=== PATIENT | female | born 1965 | race Hispanic/Latino ===

== ENCOUNTER 2018-06-25 15:23 | Outpatient (CLI) | payer BC | END 2018-06-25 15:24 | disposition home or self-care (01) | LOC: BICMAMMO 15:23 | PROVIDERS: ATTEND Nurse Practitioner Women's Health | DX: Z12.31 Encounter for screening mammogram for malignant neoplasm of breast (principal) | CPT/HCPCS: 77063; 77067 ==

== ENCOUNTER 2018-08-08 14:22 | Emergency (ER) | payer BC ==
[2018-08-08] MEDS ORDERED: Ketorolac Tromethamine 30 MG/ML VIAL ONE (14:41)
--- NOTE | 2018-08-08 15:30 | RAD ---
RIGHT KNEE 4 VIEWS: Date: 08/08/18 HISTORY: Fall, right knee pain. FINDINGS/IMPRESSION: No acute fracture or dislocation is seen. No joint effusion is identified. POS: [facility]
== END 2018-08-08 15:20 | disposition home or self-care (01) ==
LOC: ERS 14:22
DX: S83.91XA Sprain of unspecified site of right knee, initial encounter (principal); W01.0XXA Fall on same level from slipping, tripping and stumbling without subsequent striking against object, initial encounter
CPT/HCPCS: 96374; J1885

== ENCOUNTER 2018-08-26 14:49 | Outpatient (CLI) | payer BC ==
--- NOTE | 2018-08-27 07:57 | RAD ---
TWO VIEWS THORACIC SPINE: HISTORY: Back pain since Thursday. FINDINGS: AP and lateral views thoracic spine obtained. There is ectasia of the aorta. The thoracic spine is unremarkable. No evidence of thoracic spine fr actures, subluxations, or bony lesions seen. No evidence of prevertebral obvious large soft tissue m asses or lesions seen. IMPRESSION: Normal 2 views thoracic spine. POS: [facility]
--- NOTE | 2018-08-27 07:57 | RAD ---
2 VIEWS LUMBAR SPINE: Date: 08/26/18 HISTORY: Back pain. FINDINGS: AP and lateral views of lumbar spine obtained. Images demonstrate five non-rib bearing lumbar vertebr a. Hypoplastic T12 ribs are present. Minimal anterior osteophytes seen throughout the lumbar spine. There is some mild disc space height loss at the L4-5 intervertebral disc space. No evidence of compression fractures or bony lesions seen. IMPRESSION: Mild changes of spondylosis in the lumbar spine. No acute lumbar spine pathology is seen. POS: [facility]
--- NOTE | 2018-08-27 08:38 | RAD ---
3 VIEWS CERVICAL SPINE: Date: 08/26/18 HISTORY: Neck pain and back pain since Thursday. FINDINGS: AP, lateral, and open-mouth odontoid views of cervical spine obtained. Images demonstrate cervical sp inal alignment to be within normal limits. No evidence of cervical spine fractures, subluxations, or bony lesions seen. The odontoid is unremarkable. No evidence of prevertebral soft tissue swelling see n. IMPRESSION: Normal 3 views cervical spine. POS: [facility]
== END 2018-08-26 14:50 | disposition home or self-care (01) ==
LOC: BICRAD 14:49
DX: M54.2 Cervicalgia (principal); M54.5 Low back pain; M54.6 Pain in thoracic spine; M47.816 Spondylosis without myelopathy or radiculopathy, lumbar region
CPT/HCPCS: 72040; 72070; 72100

== ENCOUNTER 2020-08-31 11:39 | Outpatient (CLI) | payer BC ==
--- NOTE | 2020-08-31 14:37 | MMO ---
Bilateral MAMMO Bilat Screen [facility]. CLINICAL HISTORY: Patient is 55 years old and is seen for screening. The patient has no family history of breast cancer. The patient has no personal history of cancer. VIEWS: The views performed were: bilateral craniocaudal with tomosynthesis and bilateral mediolateral oblique with tomosynthesis. FILMS COMPARED: The present examination has been compared to prior imaging studies performed at [facility] on 01/03/2015, 01/07/2016, 06/08/2017 and 06/25/2018. This study has been interpreted with the assistance of computer-aided detection. MAMMOGRAM FINDINGS: The breasts are heterogeneously dense, which could obscure a lesion on mammography. Benign calcifications are noted bilaterally. There are no suspicious masses, suspicious calcifications, or new areas of architectural distortion. IMPRESSION: THERE IS NO MAMMOGRAPHIC EVIDENCE OF MALIGNANCY. A ROUTINE FOLLOW-UP MAMMOGRAM IN 1 YEAR IS RECOMMENDED. THE RESULTS OF THIS EXAM WERE SENT TO THE PATIENT. ACR BI-RADS Category 2 - Benign finding MAMMOGRAPHY NOTE: 1. A negative mammogram report should not delay a biopsy if a dominant of clinically suspicious mass is present. 2. Approximately 10% to 15% of breast cancers are not detected by mammography. 3. Adenosis and dense breasts may obscure an underlying neoplasm. Reported by: NOAM NEWTON MD Electonically Signed: [id number]
== END 2020-08-31 11:40 | disposition home or self-care (01) ==
LOC: BICMAMMO 11:39
PROVIDERS: ATTEND Family Medicine
DX: Z12.31 Encounter for screening mammogram for malignant neoplasm of breast (principal)
CPT/HCPCS: 77063; 77067

== ENCOUNTER 2022-04-18 15:16 | Outpatient (CLI) | payer BC | END 2022-04-18 15:17 | disposition home or self-care (01) | LOC: BICMAMMO 15:16 | PROVIDERS: ATTEND Family Medicine | DX: Z12.31 Encounter for screening mammogram for malignant neoplasm of breast (principal); R92.1 Mammographic calcification found on diagnostic imaging of breast | CPT/HCPCS: 77063; 77067 ==

== ENCOUNTER 2022-05-11 21:47 | Emergency (ER) | payer BC ==
[2022-05-11 22:48] LABS: #Basophils 0.1 thou/uL (0.0-0.2); #Lymphocytes 2.1 thou/uL (1.20-3.40); #Monocytes 0.4 thou/uL (0.11-0.59); #Neutrophils 5.2 thou/uL (1.40-6.50); %Basophils 0.7 % (0.0-1.0); %Eosinophils 0.6 % (0.0-10.0); %Lymphocytes 26.7 % (21.0-51.0); %Monocytes 5.3 % (0.0-10.0); %Neutrophils 66.7 % (42.0-75.0); Mean Corpuscular HGB CONC 34.7 g/dL (32.0-36.0); Mean Corpuscular Hemoglobin 31.6 pg (27.0-31.0); Mean Corpuscular Volume 90.9 fL (78.0-98.0); Mean Platelet Volume 6.4 fL (7.4-10.4); Platelet Count 326 thou/uL (130-400); RBC Distribution Width 11.9 % (11.5-14.5); Red Blood Cell (RBC) Count 4.13 mill/uL (4.20-5.40); White Blood Cell (WBC) Count 7.8 thou/uL (4.8-10.8)
[2022-05-11 23:07] LABS: ALT (SGPT) 22 U/L (8-55); AST (SGOT) 20 U/L (5-34); Albumin 4.1 g/dL (3.5-5.0); Alkaline Phosphatase 81 U/L (40-110); Anion Gap 15 mmol/L (10-20); BUN (Urea Nitrogen) 16 mg/dL (9.8-20.1); Bilirubin, Total 0.3 mg/dL (0.2-1.2); Calc. Creatinine Clearance 0 mL/min (70-130); Calcium 9.4 mg/dL (7.8-10.44); Carbon Dioxide 22 mmol/L (22-29); Chloride 109 mmol/L (98-107); Estimated GFR 83; Globulin 3.4 g/dL (2.4-3.5); Glucose 186 mg/dL (70-105); Potassium 3.7 mmol/L (3.5-5.1); Protein, Total 7.5 g/dL (6.0-8.3); Sodium 142 mmol/L (136-145)
[2022-05-11] MEDS ORDERED: cloNIDine 0.1 MG TAB ONE (23:34)
== END 2022-05-12 00:46 | disposition home or self-care (01) ==
LOC: ERS 21:47
DX: I10 Essential (primary) hypertension (principal); Z79.899 Other long term (current) drug therapy
CPT/HCPCS: 36415; 70450; 80053; 84484; 85025; 93005

== ENCOUNTER 2022-07-03 02:59 | Observation (INO) | payer BC ==
[2022-07-03] MEDS ORDERED: Ondansetron PF 4 MG/2 ML Vial ONE (03:36)
[2022-07-03] MEDS ORDERED: Morphine 4 MG/ML VIAL ONE (03:36)
[2022-07-03 03:51] LABS: #Eosinphils 0.1 thou/uL (0.0-0.7); #Lymphocytes 2.5 thou/uL (1.20-3.40); #Monocytes 0.5 thou/uL (0.11-0.59); #Neutrophils 5.5 thou/uL (1.40-6.50); %Basophils 0.2 % (0.0-1.0); %Eosinophils 1.5 % (0.0-10.0); %Lymphocytes 29.1 % (21.0-51.0); %Monocytes 5.4 % (0.0-10.0); %Neutrophils 63.8 % (42.0-75.0); Hemoglobin 14.5 g/dL (12.0-16.0); Mean Corpuscular HGB CONC 33.3 g/dL (32.0-36.0); Mean Corpuscular Hemoglobin 30.2 pg (27.0-31.0); Mean Corpuscular Volume 90.8 fL (78.0-98.0); Mean Platelet Volume 6.4 fL (7.4-10.4); Platelet Count 348 thou/uL (130-400); White Blood Cell (WBC) Count 8.6 thou/uL (4.8-10.8)
[2022-07-03 04:15] LABS: ALT (SGPT) 25 U/L (8-55); AST (SGOT) 22 U/L (5-34); Albumin 4.4 g/dL (3.5-5.0); Alkaline Phosphatase 83 U/L (40-110); Anion Gap 14 mmol/L (10-20); BUN (Urea Nitrogen) 21 mg/dL (9.8-20.1); Bilirubin, Total 0.6 mg/dL (0.2-1.2); Calc. Creatinine Clearance 0 mL/min (70-130); Calcium 9.4 mg/dL (7.8-10.44); Carbon Dioxide 24 mmol/L (22-29); Chloride 105 mmol/L (98-107); Estimated GFR 77; Globulin 3.5 g/dL (2.4-3.5); Glucose 199 mg/dL (70-105); Lipase 22 U/L (8-78); Potassium 3.5 mmol/L (3.5-5.1); Protein, Total 7.9 g/dL (6.0-8.3); Sodium 139 mmol/L (136-145)
[2022-07-03] MEDS ORDERED: Morphine 4 MG/ML VIAL SLOW IVP PRN (05:38)
[2022-07-03] MEDS ORDERED: Acetaminophen 325 MG TAB PO PRN (05:45)
[2022-07-03] MEDS ORDERED: Ondansetron ODT 4 MG TAB SL PRN (05:45)
[2022-07-03 06:29] LABS: Bilirubin Negative (Negative); Blood, Urine Negative (Negative); Clarity Clear (Clear); Glucose, Urine (Dipstick) 50 mg/dL (Negative); Ketone, Urine Negative (Negative); Leukocyte Negative Leu/uL (Negative); Nitrite Negative (Negative); Protein, Urine (Dipstick) 10 mg/dL (Neg-Trace); Specific Gravity, Urine Greater than 1.060 (1.002-1.036); Urobilinogen Normal mg/dL (Less than 2)
[2022-07-03] MEDS ORDERED: Enoxaparin Sodium 40 MG/0.4 ML SYRINGE SC SCH (08:15)
[2022-07-03 08:20] LABS: Lactic Acid 2.3 mmol/L (0.5-2.2)
[2022-07-03] MEDS: Ondansetron PF 4 MG/2 ML Vial IVP PRN ×2 (08:20→15:44)
[2022-07-03] MEDS: Sodium Chloride 0.9% 1,000 ML IV SCH ×4 (08:20→18:21)
[2022-07-03] MEDS ORDERED: HYDROmorphone 0.5 MG/0.5 ML SYRINGE SLOW IVP SCH (08:30)
[2022-07-03 08:31] VITALS: BMI 30.4
[2022-07-03] MEDS ORDERED: Pantoprazole 40 MG VIAL IVP SCH (09:00)
[2022-07-03] MEDS ORDERED: Iopamidol 370 76% 50 ML VIAL FS ONE (10:07)
[2022-07-03 10:24] LABS: Phosphorus 2.8 mg/dL (2.3-4.7)
[2022-07-03] MEDS ORDERED: MD-Gastroview 120 ML BOT ONE (10:25)
[2022-07-03 10:27] LABS: Cardiac Risk 3.9 (Less than 4.5); Cholesterol 212 mg/dl (< 200 Desired); HDL Cholesterol 55 mg/dL (>60 Neg Risk); LDL Cholesterol, Calculated 138 mg/dL; Triglycerides 95 mg/dL (Less than 150)
[2022-07-03 10:32] LABS: Hemoglobin A1c 6.6 % (4.0-6.0)
[2022-07-03] MEDS ORDERED: Promethazine HCl 12.5 MG in Sodium Chloride 0.9% 50 ML IVPB PRN (10:41)
[2022-07-04] MEDS: Sodium Chloride 0.9% 1,000 ML IV SCH (05:43)
[2022-07-04] MEDS ORDERED: Ondansetron ORAL SOLN. 4 MG/5 ML UDCUP PO PRN (06:58)
[2022-07-04] MEDS ORDERED: Ondansetron ODT 4 MG TAB PO PRN (07:10)
[2022-07-04 08:42] LABS: #Eosinphils 0.1 thou/uL (0.0-0.7); #Lymphocytes 1.2 thou/uL (1.20-3.40); #Monocytes 0.5 thou/uL (0.11-0.59); #Neutrophils 7.2 thou/uL (1.40-6.50); %Basophils 0.2 % (0.0-1.0); %Eosinophils 0.6 % (0.0-10.0); %Lymphocytes 13.2 % (21.0-51.0); Hemoglobin 12.9 g/dL (12.0-16.0); Mean Corpuscular HGB CONC 32.6 g/dL (32.0-36.0); Mean Corpuscular Hemoglobin 30.4 pg (27.0-31.0); Mean Corpuscular Volume 93.1 fL (78.0-98.0); Mean Platelet Volume 6.3 fL (7.4-10.4); Platelet Count 302 thou/uL (130-400); RBC Distribution Width 11.9 % (11.5-14.5); Red Blood Cell (RBC) Count 4.24 mill/uL (4.20-5.40)
[2022-07-04] MEDS ORDERED: Amlodipine 10 MG TAB PO SCH (09:00)
[2022-07-04] MEDS ORDERED: Lisinopril/Hydrochlorothiazide 10 mg/12.5 mg Tablet PO SCH (09:00)
[2022-07-04 09:12] LABS: Anion Gap 10 mmol/L (10-20); BUN (Urea Nitrogen) 17 mg/dL (9.8-20.1); Calc. Creatinine Clearance 105 mL/min (70-130); Calcium 8.3 mg/dL (7.8-10.44); Carbon Dioxide 23 mmol/L (22-29); Chloride 112 mmol/L (98-107); Estimated GFR 101; Glucose 164 mg/dL (70-105); Potassium 3.3 mmol/L (3.5-5.1); Sodium 142 mmol/L (136-145)
[2022-07-04 12:03] VITALS: BP 123/77; TEMP 99.4
[2022-07-04] MEDS ORDERED: Acetaminophen 325 MG/10.15 ML UDCUP PO PRN (12:12)
[2022-07-04] MEDS ORDERED: Acetaminophen 650 MG/20.3 ML UDCUP PO PRN (12:24)
[2022-07-04] MEDS: Potassium Chloride 20 MEQ in Premix Bag 1 BAG IVPB SCH ×2 (13:49→16:17)
== END 2022-07-04 17:50 | disposition home or self-care (01) ==
LOC: ERS 02:59 → T4-A 07:12
PROVIDERS: ADMIT Internal Medicine; ATTEND Internal Medicine
DX: K56.609 Unspecified intestinal obstruction, unspecified as to partial versus complete obstruction (principal); K21.9 Gastro-esophageal reflux disease without esophagitis; K76.0 Fatty (change of) liver, not elsewhere classified; E86.0 Dehydration; E66.9 Obesity, unspecified; Z68.30 Body mass index [BMI] 30.0-30.9, adult; Z87.11 Personal history of peptic ulcer disease; Z79.899 Other long term (current) drug therapy; Z20.822 Contact with and (suspected) exposure to COVID-19
CPT/HCPCS: 36415; 74018; 74177; 74250; 80048; 80053; 80061; 81003; 83036; 83605; 83690; 83735; 84100; 84484; 85025; 93005; 96372; 96374; 96375; 96376; C9113; G0378; J1170; J1650; J2270; J2405; J2550; J3480; J7050; Q9963; Q9967; U0003; U0005

== ENCOUNTER 2023-06-25 15:12 | Outpatient (CLI) | payer BC | END 2023-06-25 15:13 | disposition home or self-care (01) | LOC: BICMAMMO 15:12 | PROVIDERS: ATTEND Family Medicine | DX: Z12.31 Encounter for screening mammogram for malignant neoplasm of breast (principal) | CPT/HCPCS: 77063; 77067 ==

== ENCOUNTER 2023-07-21 20:36 | Emergency (ER) | payer BC ==
[2023-07-21 21:16] LABS: #Eosinphils 0.1 thou/uL (0.0-0.7); #Monocytes 0.5 thou/uL (0.11-0.59); #Neutrophils 4.9 thou/uL (1.40-6.50); %Basophils 0.4 % (0.0-1.0); %Eosinophils 1.7 % (0.0-10.0); %Lymphocytes 25.4 % (21.0-51.0); %Monocytes 6.4 % (0.0-10.0); Hematocrit 39.5 % (36.0-47.0); Hemoglobin 13.3 g/dL (12.0-16.0); Mean Corpuscular HGB CONC 33.7 g/dL (32.0-36.0); Mean Corpuscular Hemoglobin 30.7 pg (27.0-31.0); Mean Corpuscular Volume 91.2 fl (78.0-98.0); Mean Platelet Volume 8.6 fL (7.4-10.4); Platelet Count 346 10x3/uL (130-400); RBC Distribution Width 12.7 % (11.5-14.5); Red Blood Cell (RBC) Count 4.33 mill/uL (4.20-5.40); White Blood Cell (WBC) Count 7.5 10x3/uL (4.8-10.8)
[2023-07-21 21:40] LABS: ALT (SGPT) 46 U/L (8-55); AST (SGOT) 32 U/L (5-34); Albumin 4.7 g/dL (3.5-5.0); Alkaline Phosphatase 77 U/L (40-110); Anion Gap 13 mmol/L (10-20); BUN (Urea Nitrogen) 21 mg/dL (9.8-20.1); Bilirubin, Total 0.3 mg/dL (0.2-1.2); Calc. Creatinine Clearance 0 mL/min (70-130); Calcium 9.2 mg/dL (7.8-10.44); Carbon Dioxide 23 mmol/L (22-29); Chloride 106 mmol/L (98-107); Estimated GFR 76; Globulin 2.7 g/dL (2.4-3.5); Glucose 182 mg/dL (70-105); Potassium 3.7 mmol/L (3.5-5.1); Protein, Total 7.4 g/dL (6.0-8.3); Sodium 138 mmol/L (136-145)
[2023-07-21 21:44] LABS: Troponin I Less than 0.010 ng/mL (< 0.028)
== END 2023-07-21 22:05 | disposition home or self-care (01) ==
LOC: ERS 20:36
DX: I10 Essential (primary) hypertension (principal); R07.89 Other chest pain
CPT/HCPCS: 36415; 71045; 80053; 84484; 85025; 93005

== ENCOUNTER 2024-03-27 13:09 | Emergency (ER) | payer BC | END 2024-03-27 14:04 | disposition home or self-care (01) | LOC: ERS 13:09 | DX: R39.15 Urgency of urination (principal); I10 Essential (primary) hypertension | CPT/HCPCS: 99282 ==